=== PATIENT | male | born 1975 | race Caucasian/White ===

== ENCOUNTER 2016-08-22 08:12 | Day surgery (SDC) | payer OTHER ==
[~2016-08-22] VITALS: Ht 170.2 cm
[~2016-08-22 08:12] MED LIST: ANTIVERT-DPS25 MG PO; CLEOCIN HCL300 MG PO; COLACE100 MG PO; FLEXERIL-DPS10 MG PO; HYDROCODON-ACE1 EAC4 PO; MILK OF MAGNESI10 ML PO; ROBITUSSIN200 MG/10 PO
--- NOTE | 2016-08-31 08:13 | OR ---
ADMIT: 08/22/2016 RM/LOC: [facility] MR#: [id number] [id number] [address] SANDRA LAMB [address] [place] [address] Operative/Delivery Room Report SEX: M AGE: 40 : 1975 SURGERY DATE: 08/22/2016 SURGEON: Bessie Sandoval MD PREOPERATIVE DIAGNOSES: 1. Cervical post laminectomy syndrome. 2. Cervicalgia. 3. Chronic pain syndrome. POSTOPERATIVE DIAGNOSES: 1. Cervical post laminectomy syndrome. 2. Cervicalgia. 3. Chronic pain syndrome. OPERATION: Two lead spinal cord stimulator trial. ANESTHESIA: Local with sedation. COMPLICATIONS: None. BRIEF INDICATIONS: The patient is a pleasant gentleman with history of chronic neck pain secondary to above mentioned diagnoses, comes here for planned cervical lead placement of spinal cord stimulator trial. DESCRIPTION OF PROCEDURE: After informed consent was obtained, the patient was taken to the operative suite and placed in the prone position. Non- invasive anesthesia monitoring was placed. The skin over the lumbar spine was prepped and draped in a sterile fashion using ChloraPrep. A 14-gauge epidural needle was advanced through a stab incision through anesthetized skin. The needle was advanced at the low paramedian angle entering the thoracic spine at the T2-T3 level. The epidural needle was then advanced into C7-T1 interspace using continuous loss of resistance and once the loss of resistance was noted, the guidewire was introduced into the epidural space. Next, a [employer] spinal stimulator lead was placed into the epidural space and advanced ADMIT: 08/22/2016 RM/LOC: [facility] MR#: [id number] [address] RIOS CERVBETHEL PACHECODRO [address] [place] [address] Operative/Delivery Room Report SEX: M AGE: 40 : 1975 with tips on top of C2 in a staggered position. Please see dimension in the chart for this. Next, the stimulation was undertaken by a [employer] sales representative education courses. He got good coverage with the middle of the lead across the C3 and C4 vertebral body. This was covering the bilateral hip, thigh and back. Stylus was removed and the epidural needle was removed. Then, leads were taped into place and hooked into the electronic connector. The patient tolerated the procedure very well and gave good feedback. There were no complications. There was no blood loss. We will see the patient back in approximately three to four days for lead removal. Bessie Sandoval MD/ hilda JOB #: [id number] EDIT 08/28/2016 1304 / debby EDIT: 08/29/2016 1441 vdg CC: Bessie Sandoval MD, Attending Physician NO FAMILY PHYSICIAN, Family Physician
== END 2016-08-22 13:55 | disposition home or self-care (01) ==
LOC: SSS 08:12
PROC: 00HU3MZ Insertion of Neurostimulator Lead into Spinal Canal, Percutaneous Approach (ICD-10-PCS; principal; 2016-08-22)
DX: G89.4 Chronic pain syndrome (principal); M96.1 Postlaminectomy syndrome, not elsewhere classified; J01.90 Acute sinusitis, unspecified; F32.9 Major depressive disorder, single episode, unspecified; F17.200 Nicotine dependence, unspecified, uncomplicated; M50.10 Cervical disc disorder with radiculopathy, unspecified cervical region; Z98.1 Arthrodesis status; Z88.5 Allergy status to narcotic agent; Z78.9 Other specified health status